=== PATIENT | male | born 1980 | race Caucasian/White ===

== ENCOUNTER 2019-12-18 03:05 | Emergency (ER) | payer OTHER ==
[~2019-12-18] VITALS: Ht 182.9 cm; Wt 93.2 kg
[2019-12-18] MEDS ORDERED: DEXAMETHASONE 4 MG TABLET ONE (03:26)
[2019-12-18] MEDS ORDERED: DEXAMETHASONE 4 MG TABLET PO ONE (03:30)
[2019-12-18] MEDS ORDERED: IBUPROFEN 600 MG TABLET ONE (04:26)
[2019-12-18] MEDS ORDERED: IBUPROFEN 200 MG TABLET PO ONE (04:30)
[2019-12-18 04:41] VITALS: BP 120/84
== END 2019-12-18 04:45 | disposition home or self-care (01) ==
LOC: ED 04:10
DX: J00 Acute nasopharyngitis [common cold] (principal); B97.89 Other viral agents as the cause of diseases classified elsewhere; R05 Cough; R06.00 Dyspnea, unspecified
CPT/HCPCS: 71046; 99283